=== PATIENT | male | born 1975 | race African-American/Black ===

== ENCOUNTER 2016-12-03 09:32 | Emergency (ER) | payer OTHER ==
[~2016-12-03] VITALS: Ht 177.8 cm; Wt 181.4 kg
[~2016-12-03 09:32] MED LIST: AMOXICILLIN500 MG ORAL; HYDROCODON-ACE1 EA15 ORAL
[2016-12-03] MEDS ORDERED: LEVETIRACETAM500 MG ORAL (09:40)
[2016-12-03] MEDS ORDERED: GLIPIZIDE10 MG PO (09:40)
[2016-12-03] MEDS ORDERED: ASPIR 8181 MG ORAL (09:40)
[2016-12-03] MEDS ORDERED: METFORMIN HCL500 M5 PO (09:40)
[2016-12-03] MEDS ORDERED: LISINOPRIL20 MG ORAL (09:40)
[2016-12-03 09:44] VITALS: BP 133/84
[2016-12-03] MEDS ORDERED: KEFLEX500 MG ORAL (09:47)
[2016-12-03] MEDS ORDERED: CORTISPORIN EAR10 ML RIGHT EAR (09:47)
[2016-12-03] MEDS ORDERED: Tetracaine 0.5% Opth 4ml Soln RIGHT EYE ONE (10:00)
[2016-12-03 10:15] VITALS: BP 133/84
--- NOTE | 2016-12-03 10:45 | Emergency Room Report ---
History of Present Illness General Chief Complaint: Earache Source: Patient, Medical Record Present Illness HPI Patient is a 41-year-old male who presented after a 34 days of right-sided earache. Patient prior history of recurrent otitis externa. The patient noted be diabetic. He denied any fever. He had not been having any ear discharge. He denies any changes hearing. Patient reports having intermittently high blood sugars. Allergies: Coded Allergies: No Known Allergies (Unverified , 01/20/16) Patient History Past Medical History: see triage record Reviewed Nursing Documentation: PMH: Agreed, PSxH: Agreed Nursing Documentation-PMH Past Medical History: No History, Except For Hx Hypertension: Yes Hx Diabetes: Yes Hx Seizures: Yes Review of Systems All Other Systems: negative except mentioned in HPI Physical Exam Vital Signs Date Time Temp Pulse Resp B/P (MAP) Pulse Ox O2 Delivery O2 Flow Rate FiO2 12/03/16 09:35 97.9 91 18 133/84 96 Room Air General Appearance: well appearing, no apparent distress, alert, GCS 15, non- toxic Head: normocephalic, atraumatic ENT: hearing grossly normal, normal voice, other - right ear canal swelling and inflammation without discharge Neck: full range of motion, supple Respiratory: no respiratory distress, speaking full sentences Cardiovascular #1: normal peripheral pulses, regular rate, rhythm, no edema Gastrointestinal: normal inspection, soft Musculoskeletal: no calf tenderness Neurologic: normal gait Psychiatric: mood/affect normal Skin: no rash Medical Decision Making Diagnostic Impression: Primary Impression: Earache, right ER Course Patient presented for ear pain. Differential diagnosis included was not limited to otitis media, malignant otitis externa, foreign body, cellulitis, mastoiditis, carotid dissection, myocardial infarction among others. Patient' s benign exam and does not appear to require any further imaging or laboratory testing at this time. The patient appears to have otitis externa. Patient was given prescription for Cortisporin Otic. The patient was advised followup with ENT and to follow his blood sugars closely. The patient is advised to follow up with primary care doctor in 1-2 days. Patient is advised to return if any worsening condition or if any changes in status that are concerning. Last Vital Signs Date Time Temp Pulse Resp B/P (MAP) Pulse Ox O2 Delivery O2 Flow Rate FiO2 12/03/16 10:15 97.9 82 18 133/84 96 Room Air Status: improved Disposition: HOME, SELF-CARE Condition: Stable Scripts Neomycin/Polymyxin B Sulf/Hc* (CORTISPORIN EAR SOLUTION*) 10 Ml Solution 4 DROP RIGHT EAR QID, #10 ML 0 Refills Prov: Jose M Russell 12/03/16 [facility] Patient Instructions: EarJose M Pressley Dec 03, 2016 10:44
== END 2016-12-03 10:17 | disposition home or self-care (01) ==
LOC: EMR 10:05
DX: H92.01 Otalgia, right ear (principal); I10 Essential (primary) hypertension; E11.9 Type 2 diabetes mellitus without complications
CPT/HCPCS: 99283

== ENCOUNTER 2017-09-13 02:19 | Emergency (ER) | payer OTHER ==
[~2017-09-13] VITALS: Ht 177.8 cm; Wt 158.8 kg
[~2017-09-13 02:19] MED LIST changes: +ASPIR 8181 MG ORAL; +CORTISPORIN EAR10 ML RIGHT EAR; +GLIPIZIDE10 MG PO; +KEFLEX500 MG ORAL; +LEVETIRACETAM500 MG ORAL; +LISINOPRIL20 MG ORAL; +METFORMIN HCL500 M5 PO
[2017-09-13 02:30] VITALS: BP 156/89
[2017-09-13] MEDS ORDERED: CORTISPORIN EAR10 ML RIGHT EAR (02:54)
--- NOTE | 2017-09-13 02:55 | Emergency Room Report ---
History of Present Illness General Chief Complaint: Earache Source: Patient Present Illness HPI Is a 42-year-old male with a history diabetes. He presents with right ear pain. Similar symptom last year. This occurred about 3 days ago. He said he normally scratch his ear at night. This probably cause some inflammation. Denies any fever or chills. Denies any drainage. Pain is 7 out of 10. Localized the right ear. No radiation. Allergies: Coded Allergies: No Known Allergies (Unverified , 01/20/16) Patient History Past Medical History: see triage record, old chart reviewed, DM Past Surgical History: other Pertinent Family History: none Social History: Denies: smoking Immunizations: other Reviewed Nursing Documentation: PMH: Agreed; PSxH: Agreed Nursing Documentation-PMH Hx Hypertension: Yes Hx Diabetes: Yes - Peripheral Neuropathy Hx Seizures: Yes - Epilepsy Review of Systems Eye: Denies: eye pain, blurred vision ENT: Reports: ear pain; Denies: nose congestion, throat swelling Respiratory: Denies: cough, shortness of breath Cardiovascular: Denies: chest pain, palpitations Gastrointestinal: Denies: abdominal pain, diarrhea, nausea, vomiting Musculoskeletal: Denies: back pain, joint pain Skin: Denies: rash Neurological: Denies: headache, numbness Endocrine: Denies: increased thirst, increased urine Hematologic/Lymphatic: Denies: easy bruising All Other Systems: negative except mentioned in HPI Physical Exam Vital Signs Date Time Temp Pulse Resp B/P (MAP) Pulse Ox O2 Delivery O2 Flow Rate FiO2 09/13/17 02:23 98.5 98 18 157/84 99 Room Air 98.4 vitals with high blood pressure Sp02 EP Interpretation: reviewed, normal General Appearance: well appearing, no apparent distress, alert Head: normocephalic, atraumatic Eyes: bilateral eye PERRL, bilateral eye EOMI ENT: hearing grossly normal, normal pharynx, other - Right ear: There is mild edema to the canal. TMs normal. No mastoid tenderness. Neck: full range of motion, supple, no meningismus Respiratory: chest non-tender, lungs clear, normal breath sounds Cardiovascular #1: regular rate, rhythm, no murmur Gastrointestinal: normal bowel sounds, non tender, no mass, no organomegaly, no bruit, non-distended Musculoskeletal: back normal, gait/station normal, normal range of motion Psychiatric: mood/affect normal Skin: warm/dry Medical Decision Making Diagnostic Impression: Primary Impression: Right otitis externa Qualified Codes: H60.501 - Unspecified acute noninfective otitis externa, right ear ER Course Patient with otitis externa. No evidence of otitis media. We'll discharge home with antibiotic drops. No mastoiditis. Last Vital Signs Date Time Temp Pulse Resp B/P (MAP) Pulse Ox O2 Delivery O2 Flow Rate FiO2 09/13/17 02:30 98.2 97 18 156/89 99 Room Air 98.2 Status: improved Disposition: HOME, SELF-CARE Condition: Stable Scripts Neomycin/Polymyxin B Sulf/Hc* (CORTISPORIN EAR SOLUTION*) 10 Ml Solution 4 DROP RIGHT EAR QID, #10 ML 0 Refills Prov: CECILIO MOLINA M.D. 09/13/17 Patient Instructions: Otitis Externa, [id number] Additional Instructions: Follow-up with your doctor in 7 days. Return if symptom worsen. CECILIO MOLINA M.D. Sep 13, 2017 02:55
[2017-09-13 03:10] VITALS: BP 156/89
[2017-09-13] MEDS ORDERED: Lidocaine 2% Visc 15ml soln ORAL ONE (03:15)
== END 2017-09-13 03:10 | disposition home or self-care (01) ==
LOC: EMR 03:00
DX: H60.91 Unspecified otitis externa, right ear (principal); I10 Essential (primary) hypertension; E11.40 Type 2 diabetes mellitus with diabetic neuropathy, unspecified; G40.909 Epilepsy, unspecified, not intractable, without status epilepticus
CPT/HCPCS: 99283

== ENCOUNTER 2018-04-01 01:20 | Emergency (ER) | payer OTHER ==
[~2018-04-01] VITALS: Ht 177.8 cm; Wt 181.4 kg
[2018-04-01 01:27] VITALS: BP 131/76
--- NOTE | 2018-04-01 01:27 | NUR ---
ED Nurse Note: Pt arrived ED from home. C/o left ear pain for 5 days 07/06. Pt is A/o x4. 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 Vital signs stable at this time. Waiting for orders.
[2018-04-01] MEDS ORDERED: HYDROCHLOROTH12.5 M2 ORAL (01:32)
[2018-04-01] MEDS ORDERED: CIPRODEX OTIC7.5 M1 LEFT EAR (01:45)
[2018-04-01] MEDS ORDERED: LIDOCAINE20 MG/1 M1 MM (01:45)
--- NOTE | 2018-04-01 01:45 | Emergency Room Report ---
History of Present Illness General Chief Complaint: Earache Source: Patient, Medical Record Present Illness HPI This is a [age]-year-old male with a history diabetes and high blood pressure. He presents with left ear pain. He gets recurrent otitis externa. I seen him before for right otitis externa. Onset for last 5 days now. He used some leftover antibiotic drops not helping. No fever chill. No nausea no vomiting. Pain is 7 out of 10. Allergies: Coded Allergies: No Known Allergies (Unverified , 01/20/16) Patient History Past Medical History: see triage record, old chart reviewed, DM, HTN Past Surgical History: none Pertinent Family History: none Social History: Denies: smoking Immunizations: other Reviewed Nursing Documentation: PMH: Agreed; PSxH: Agreed Nursing Documentation-PMH Hx Hypertension: Yes Hx Diabetes: Yes - Peripheral Neuropathy Hx Seizures: Yes - Epilepsy Review of Systems Eye: Denies: eye pain, blurred vision ENT: Reports: ear pain; Denies: nose congestion, throat swelling Respiratory: Denies: cough, shortness of breath Cardiovascular: Denies: chest pain, palpitations Gastrointestinal: Denies: abdominal pain, diarrhea, nausea, vomiting Musculoskeletal: Denies: back pain, joint pain Skin: Denies: rash Neurological: Denies: headache, numbness Endocrine: Denies: increased thirst, increased urine Hematologic/Lymphatic: Denies: easy bruising All Other Systems: negative except mentioned in HPI Physical Exam Vital Signs Date Time Temp Pulse Resp B/P (MAP) Pulse Ox O2 Delivery O2 Flow Rate FiO2 04/01/18 01:29 97.9 106 18 153/92 97 Room Air vitals unremarkable Sp02 EP Interpretation: reviewed, normal General Appearance: well appearing, no apparent distress, alert, obese Head: normocephalic, atraumatic Eyes: bilateral eye PERRL, bilateral eye EOMI ENT: hearing grossly normal, normal pharynx, other - Left ear: There is some edema to the canal. Tenderness with movement of the pinna. TM normal. Neck: full range of motion, supple, no meningismus Respiratory: chest non-tender, lungs clear, normal breath sounds Cardiovascular #1: regular rate, rhythm, no murmur Gastrointestinal: normal bowel sounds, non tender, no mass, no organomegaly, no bruit, non-distended Musculoskeletal: back normal, normal range of motion, other - Patient and wheelchair Psychiatric: mood/affect normal Skin: warm/dry Medical Decision Making Diagnostic Impression: Primary Impression: Otitis externa of left ear Qualified Codes: H60.312 - Diffuse otitis externa, left ear ER Course Patient with otitis externa. No perforation. We'll discharge home with antibiotic drops. Last Vital Signs Date Time Temp Pulse Resp B/P (MAP) Pulse Ox O2 Delivery O2 Flow Rate FiO2 04/01/18 01:29 97.9 106 18 153/92 97 Room Air Status: unchanged Disposition: HOME, SELF-CARE Condition: Stable Scripts Lidocaine HCl (Lidocaine HCl Viscous) 100 Ml Solution 4 DROP MM QID, #20 MG Prov: Ladarius Bird MD 04/01/18 Ciprofloxacin Hcl/Dexameth (CIPRODEX OTIC SUSPENSION) 7.5 Ml Drops.susp 4 DROP LEFT EAR TWICE A DAY, #10 ML Prov: Ladarius Bird MD 04/01/18 Patient Instructions: Otitis Externa, [id number] Additional Instructions: Follow-up with your doctor in 7 days or return if worse. Ladarius Bird MD Apr 01, 2018 01:45
[2018-04-01 01:49] VITALS: BP 148/91
--- NOTE | 2018-04-01 01:58 | NUR ---
ED Nurse Note: Pt has seen by Dr. Bird. All orders carried out. Pt is ready for discharge. D/c instruction and prescription given to Pt and verbalized understanding. ID band removed. Pt d/c from ED with his own wheelchair. A/O x4. VSS.
== END 2018-04-01 01:49 | disposition home or self-care (01) ==
LOC: EMR 01:36
DX: H60.92 Unspecified otitis externa, left ear (principal); I10 Essential (primary) hypertension; E11.42 Type 2 diabetes mellitus with diabetic polyneuropathy
CPT/HCPCS: 99282